=== PATIENT | female | born 1960 | race Caucasian/White ===

== ENCOUNTER 2023-04-15 10:09 | Emergency (ER) | payer OTHER ==
[~2023-04-15] VITALS: Ht 167.6 cm; Wt 100.6 kg
[~2023-04-15 10:09] MED LIST: APIX5TAB5 PO; ATOR40TA71 PO; MULT-1085 PO; TRAM50TA2 PO
[2023-04-15 10:10] VITALS: BP 161/85; PULSE 110; RESP 28; TEMP 98.6; O2SAT 96
== END 2023-04-15 10:35 | disposition home or self-care (01) ==
LOC: ER 10:10
DX: Z79.899 Other long term (current) drug therapy (principal); Z86.718 Personal history of other venous thrombosis and embolism; Z86.711 Personal history of pulmonary embolism
CPT/HCPCS: 99281

== ENCOUNTER 2024-03-15 10:04 | Emergency (ER) | payer BC, OTHER ==
[~2024-03-15] VITALS: Ht 165.1 cm; Wt 101.4 kg
[2024-03-15 10:40] VITALS: TEMP 97.1
[2024-03-15 15:21] VITALS: BP 153/70; PULSE 78; RESP 16; O2SAT 97
== END 2024-03-15 15:24 | disposition home or self-care (01) ==
LOC: ER 10:05
DX: M79.604 Pain in right leg (principal); W19.XXXA Unspecified fall, initial encounter; Y93.89 Activity, other specified; Y92.89 Other specified places as the place of occurrence of the external cause; Y99.8 Other external cause status
CPT/HCPCS: 93971; 99284